=== PATIENT | female | born 1960 | race Two or more races ===

== ENCOUNTER 2024-10-11 17:49 | Emergency (ER) | payer BC, SELFPAY ==
[2024-10-11 18:02] VITALS: BP 153/76; PULSE 78; RESP 18; TEMP 36.7; O2SAT 98
--- NOTE | 2024-10-11 18:06 | XR_ITS ---
Examination: Hand, right 3 views Technique: Hand AP, oblique, lateral 3 views Date and time of exam: October 11, 2024 1820 hours INDICATIONS: Laceration to the hand and wrist today wrist pain and hand pain FINDINGS: Soft tissue prominence at the base of the first metacarpal No fracture No opaque foreign body IMPRESSION: No opaque foreign body
--- NOTE | 2024-10-11 18:07 | PD.EDRME ---
Rapid Medical Screening Exam E Arrival date/time: 10/11/24 17:49 64-year-old female with a history of hyperlipidemia presents to the emergency room with a chief complaint of a laceration to her right hand. Patient states she was washing dishes when a glass broke and cut her. I have greeted and performed a focused initial assessment of this patient. A comprehensive ED assessment and evaluation of the patient, analysis of all test results, and completion of the medical decision making process will be conducted by additional ED providers. Chief Complaint: Wound/Laceration Vital signs: Vital Signs Temperature 98.0 F 10/11/24 18:02 Pulse Rate 78 10/11/24 18:02 Respiratory Rate 18 10/11/24 18:02 Blood Pressure 153/76 H 10/11/24 18:02 Pulse Oximetry (%) 98 10/11/24 18:02 Oxygen Delivery Method Room Air 10/11/24 18:02 Vital signs reviewed by provider: Yes
[2024-10-11] MEDS: DIPHTH,PERTUSS(ACELL),TET VAC 0.5 ML SYR- ADULT IMi (18:18)
[2024-10-11] MEDS: LIDOCAINE HCL 1% 20 ML VIAL INFL (18:18)
--- NOTE | 2024-10-11 20:04 | EDNOTE_ITS ---
ED Wound/Laceration-RME/HPI General Chief Complaint: Wound/Laceration Stated Complaint: Laceration from glass right wrist Time Seen by Provider: 10/11/24 18:19 Arrival date/time: 10/11/24 17:49 Patient is also taking Eliquis which caused the wound to bleed significantly. She denies any numbness, tingling or functional deficit. RME / HPI RME / HPI narrative: 10/11/24 17:49 64-year-old female with a history of hyperlipidemia presents to the emergency room with a chief complaint of a laceration to her right hand. Patient states she was washing dishes when a glass broke and cut her. I have greeted and performed a focused initial assessment of this patient. A comprehensive ED assessment and evaluation of the patient, analysis of all test results, and completion of the medical decision making process will be conducted by additional ED providers. Related Data Home Medications ?Medication ?Instructions ?Recorded ?Confirmed atorvastatin 40 mg tablet (Lipitor) 40 mg PO HS #0 tab s 10/25/15 Allergies Allergy/AdvReac Type Severity Reaction Status Date / Time No Known Allergies Allergy Unverified 10/11/24 18:08 Review of Systems Review of Systems Systems Reviewed: All systems reviewed, normal except as documented Past Medical History Social History SMOKING STATUS: Never smoker ED Exam Narrative Physical exam: A&O, afebrile and non-toxic appearing 64-year-old female, no acute distress. Right thumb metacarpal area with 0.75 cm laceration, bleeding is controlled at this time due to a clot in the open wound. Sensory and motor intact distally. No functional deficit noted. Minimal pain at the laceration site. Lungs are clear, RRR, Abdomen is non-distended. Moves all extremities well. Course Course Course Narrative: XR hand reveals no evidence of opaque foreign body noted per radiologist. Tdap was updated. Wound was anesthetized with lidocaine 1%, 2 mL with good anesthesia obtained. Wound was explored, no foreign body noted. Additional cleansing of the wound performed. Wound closure with #2 4.0 nylon sutures with good wound edge approximation. Bleeding continued following suturing likely due to Eliquis. Direct pressure applied until pressure bandage could be applied. Quality Measures none Orders Category Date Time Status Set Up Suture Tray STAT Care 10/11/24 18:06 Active Wound Care NOW Care 10/11/24 18:06 Active XR hand comp RT min 3V Stat Exams 10/11/24 18:06 Completed Lidocaine 1% 20 ml [Xylocaine 1% 20 ML] Med 10/11/24 18:06 Discontinued 20 ml INFL X1 ONE TET,DIP/PERT AC (Adult)-Tdap [Boostrix Adult (Tdap) Med 10/11/24 18:06 Discontinued Vacc] 0.5 ml IMI .ONCE ONE Vital Signs Vital signs: Vital Signs Temperature 98.0 F 10/11/24 18:02 Pulse Rate 78 10/11/24 18:02 Respiratory Rate 18 10/11/24 18:02 Blood Pressure 153/76 H 10/11/24 18:02 Pulse Oximetry (%) 98 10/11/24 18:02 Oxygen Delivery Method Room Air 10/11/24 18:02 Wound / Laceration MDM Narrative MDM Narrative:: Symptoms, exam and diagnostic studies are consistent with: Right first metacarpal area laceration with sutures x 2. Patient was discharged home in stable condition. Patient/family advised to follow-up with their PCP in 24-48 hours. Encouraged to return to the ED for any new or worsening symptoms. Patient data External records reviewed:: None Clinical information provided by:: family Social determinants that could affect healthcare access:: none Patient has the following chronic illnesses:: Hyperlipidemia, blood thinner usage. How is presenting disease/condition affected by chronic disease/condition?: exacerbated by (Bleeding due to Eliquis.) Evaluation data The following diagnostics were reviewed and interpreted by me:: radiology exam(s) Lab and/or radiology exams considered but not ordered:: N/A Interpretation Summary: As noted above Medications / Prescriptions Medications or Prescriptions considered but not ordered:: N/A Medication administrations:: Medication Administration History Discontinued Medications Diphtheria/Tetanus/Acell Pertussis (Diphth,Pertuss(Acell),Tet Vac 0.5 Ml Syr- Adult) 0.5 ml IMi .ONCE ONE Stop: 10/11/24 18:07 Last Admin: 10/11/24 18:18 Dose: 0.5 ml Documented By: AMRIT Lidocaine HCl (Lidocaine Hcl 1% 20 Ml Vial) 20 ml INFL X1 ONE Stop: 10/11/24 18:07 Last Admin: 10/11/24 18:18 Dose: 20 ml Documented By: AMRIT Comments: USED BY PROVIDER As noted above Consultations Consultation(s) initiated? (list below): No Diagnosis Wound Differential Diagnosis: laceration Most likely diagnosis given after review of the tests above:: Laceration to right first metacarpal area without tendon laceration. Admission Indicated Admission indicated?: not indicated Explain why admission is indicated or not indicated:: Patient is stable for discharge Admission Request Was there a request for admission?: No Admission Attestation Admission request attestation: N/A Disposition Plan Disposition Plan: Discharge Discharge Attestation Discharge Attestation: The patient and all family members were given an opportunity to ask questions and understood the discharge instructions. Discharge instructions specifically effects, indications for sooner follow up or return to the emergency department, and the expected course of current diagnosis. Patient condition: Stable Discharge Plan Plan Patient Disposition: HOME (Self Care) Discharge Disposition comment: Stable and improved Prescriptions/Referrals Prescriptions/Med Rec: No Action atorvastatin [Lipitor] 40 MG tablet 40 mg PO HS Qty: 0 Referrals: Sharlene Baldwin, ORDER ENTRY SPECIALIST [Primary Care Provider] - In 1 week Problem List Clinical Impression: Laceration Patient/Caregiver Discharge Instructions Additional Instructions: Mantenga la herida limpia y seca, y no la exponga a demasiada humedad. Mant?ngala cubierta con jenifer curita. Retire los puntos en 10 d?as. Acuda a jenifer leonel de seguimiento con lennon m?dico de cabecera en 24 a 48 horas. Regrese a urgencias si presenta s?ntomas nuevos o empeora. Print Language: Kiswahili Stand Alone Forms: Dia Award Info., Patient Portal Info Letter Vaccines Vaccines Given During Stay: TDaP OSCAR/KEYON Supervising Physician JAIME Supervising Physician: Dr. Cervantes
== END 2024-10-11 20:35 | disposition home or self-care (01) ==
PROVIDERS: Emergency Provider Emergency Medicine; PCP Nurse Practitioner Family
DX: S61.511A Laceration without foreign body of right wrist, initial encounter (principal); E78.5 Hyperlipidemia, unspecified; Z23 Encounter for immunization; Z79.899 Other long term (current) drug therapy; W25.XXXA Contact with sharp glass, initial encounter
CPT/HCPCS: 12001; 73130; 90471; 90715; 99284; J3490

== ENCOUNTER → 2024-10-12 | Outpatient (CLI) | payer BC, SELFPAY ==
--- NOTE | 2024-10-12 13:00 | XR_ITS ---
Examination: Screening digital mammography, bilateral Computer aided detection 3-D breast Tomosynthesis, bilateral Date and time of exam: October 12, 2024 1309 hours Compared to mammograms dating to April 30, 2014 Indication: Screening Technique: Nonmagnified MLO, CC views of the breasts to been obtained, reconstructed from 3-D Tomosynthesis images. R2 computer aided detection program utilized for evaluation of suspicious masses and/or abnormal calcifications. 3-D Tomosynthesis images obtained. Findings: Scattered areas of fibroglandular density. Benign calcifications. Breast biopsy marker upper outer left breast No interval suspicious masses Impression: BI-RADS category II: Benign Findings. Recommend 1 year follow-up mammogram.
== END | disposition home or self-care (01) ==
LOC: CDIM 12:47
DX: Z12.31 Encounter for screening mammogram for malignant neoplasm of breast (principal); R92.323 Mammographic fibroglandular density, bilateral breasts; R92.1 Mammographic calcification found on diagnostic imaging of breast
CPT/HCPCS: 77063; 77067

== ENCOUNTER 2024-10-28 14:53 | Emergency (ER) | payer BC, SELFPAY ==
[2024-10-28 15:07] VITALS: BP 151/94; PULSE 60; RESP 16; TEMP 37; O2SAT 97; BMI 27.7
--- NOTE | 2024-10-28 15:56 | EDNOTE_ITS ---
ED Skin Abcess FB-RME/HPI General Chief complaint: Skin/Abscess/Foreign Body Stated complaint: Lump right wrist after sutures Time Seen by Provider: 10/28/24 15:00 Arrival date/time: 10/28/24 14:53 64-year-old female presents to the emergency department today with complaints of lump to the right wrist patient reports that she recently had sutures placed 10/11 reports since then the area has been swollen patient was seen by PCP and referred for an I&D Limitations: no limitations Related Data Home Medications ?Medication ?Instructions ?Recorded ?Confirmed atorvastatin 40 mg tablet (Lipitor) 40 mg PO HS #0 tab s 10/25/15 Allergies Allergy/AdvReac Type Severity Reaction Status Date / Time No Known Allergies Allergy Verified 10/28/24 14:57 Review of Systems Review of Systems Systems Reviewed: All systems reviewed, normal except as documented Constitutional Constitutional: Reports system reviewed and no additional complaints, except as documented, Denies fever(s) and Denies headache(s) Eyes Eyes: Reports system reviewed and no additional complaints, except as documented and Denies blurry vision ENT Ears, Nose, Mouth, and Throat: Reports system reviewed and no additional complaints, except as documented, Denies headache(s), Denies nasal congestion and Denies nasal discharge Cardiovascular Cardiovascular: Reports system reviewed and no additional complaints, except as documented, Denies chest pain and Denies dyspnea Respiratory Respiratory: Reports system reviewed and no additional complaints, except as documented, Denies chest congestion, Denies cough and Denies dyspnea Gastrointestinal Gastrointestinal: Reports system reviewed and no additional complaints, except as documented and Denies abdominal pain Integumentary/Breasts Skin/Breast: Reports system reviewed and no additional complaints, except as documented, Denies rash and Reports other (Hematoma right wrist) Neurologic Neurologic: Reports system reviewed and no additional complaints, except as documented, Reports as per HPI and Denies headache(s) Past Medical History Social History SMOKING STATUS: Never smoker ED Exam General Limitations: Present no limitations General appearance: Present alert and in no apparent distress Head Head exam: Present atraumatic Eye Eye exam: Present normal appearance, PERRL and EOMI ENT ENT exam: Present normal exam, normal oropharynx and mucous membranes moist Neck Neck exam: Present normal inspection, full ROM and trachea midline Chest Chest inspection: Present normal inspection and symmetric chest wall rise Respiratory Respiratory exam: Present normal lung sounds bilaterally Cardiovascular Cardiovascular exam: Present regular rate, normal rhythm and normal heart sounds Abdominal Exam Abdominal exam: Present soft and normal bowel sounds Extremities Exam Extremities exam: Present normal inspection, full ROM, tenderness and normal capillary refill Back Exam Back exam: Present normal inspection and full ROM Neurological Exam Neurological exam: Present alert, oriented X3, CN II-XII intact, normal gait and reflexes normal; Absent motor sensory deficit Psychiatric Psychiatric exam: Present normal affect and normal mood Skin Skin exam: Present warm, dry and other (Hematoma right wrist) Course Quality Measures none Orders Category Date Time Status Set Up Suture Tray STAT Care 10/28/24 15:10 Completed Wound Care NOW Care 10/28/24 15:10 Completed Vital Signs Vital signs: Vital Signs Temperature 98.6 F 10/28/24 15:07 Pulse Rate 60 10/28/24 15:07 Respiratory Rate 16 10/28/24 15:07 Blood Pressure 151/94 H 10/28/24 15:07 Pulse Oximetry (%) 97 10/28/24 15:07 Oxygen Delivery Method Room Air 10/28/24 15:07 O2 saturation at 97% room air within the limits PROCEDURES: Laceration Laceration 1: Site: upper extremity Side (If applicable): right Size (cm): 1 Description: linear Depth: simple, single layer Local Anesthetic: lidocaine 1% Amount of anesthesia used (mL): 2 Pre-repair: irrigated extensively Skin layer closed with: nylon Suture size (cm): 5-0 Number of sutures: 1 Technique: other ([id number]) Skin / Abscess / Foreign Body MDM Narrative MDM Narrative:: 64-year-old female presents to the emergency department today with complaints of lump to the right wrist patient reports that she recently had sutures placed 10/11 reports since then the area has been swollen patient was seen by PCP and referred for an I&D On exam patient does appear to have abscess at the site of I&D Patient was set up for I&D procedure a small quarter inch shallow incision made patient immediately started bleeding After further investigation patient appears to have a hematoma and not an absce ss or bleed is hematoma secondary to a arterial bleed. After speaking with the patient and her daughter it sounds that the patient was bleeding quite a bit when she initially cut herself with a piece of glass at that time I believe she most likely had an arterial bleed which was tied off which developed a hematoma. As the patient is on blood thinners I believe the hematoma is larger 1 [id number] suture applied today and a pressure dressing applied patient no longer is bleeding at time of discharge Symptoms consistent with hematoma, arterial injury Patient instructed have suture removed in 10 days Patient data External records reviewed:: [facility] previous records Clinical information provided by:: patient Social determinants that could affect healthcare access:: none Patient has the following chronic illnesses:: See history How is presenting disease/condition affected by chronic disease/condition?: exacerbated by Evaluation data The following diagnostics were reviewed and interpreted by me:: other (specify) Lab and/or radiology exams considered but not ordered:: Considered not ordered Interpretation Summary: N/A Medications / Prescriptions Medications or Prescriptions considered but not ordered:: Given Medication administrations:: Given Consultations Consultation(s) initiated? (list below): No Diagnosis Skin/Abscess Differential Diagnosis: abscess of skin or subcutaneous tissue, cellulitis and other (Hematoma, arterial injury) Most likely diagnosis given after review of the tests above:: Hematoma, arterial injury Admission Indicated Admission indicated?: not indicated Admission Request Was there a request for admission?: No Disposition Plan Disposition Plan: Discharge Discharge Attestation Discharge Attestation: The patient and all family members were given an opportunity to ask questions and understood the discharge instructions. Discharge instructions specifically effects, indications for sooner follow up or return to the emergency department, and the expected course of current diagnosis. Patient condition: Stable Discharge Plan Plan Patient Disposition: HOME (Self Care) Discharge Disposition comment: Stable Prescriptions/Referrals Prescriptions/Med Rec: No Action atorvastatin [Lipitor] 40 MG tablet 40 mg PO HS Qty: 0 Referrals: No Primary/Family,Physician [Primary Care Provider] - In 1 week Problem List Clinical Impression: Hematoma of right wrist, Unspecified injury of radial artery at wrist and hand level of right arm, subsequent encounter Patient/Caregiver Discharge Instructions Education Materials: ED Soft Tissue Contusion Additional Instructions: Please apply pressure follow-up with PCP for emergent concerns or increased bleeding return immediately Print Language: Bengali Stand Alone Forms: Dia Award Info., Patient Portal Info Letter PA/CAMERA PERSON Supervising Physician PA/CAMERA PERSON Supervising Physician: Dr. perkins
== END 2024-10-28 16:19 | disposition home or self-care (01) ==
PROVIDERS: Emergency Provider Family Medicine
DX: S65.111A Laceration of radial artery at wrist and hand level of right arm, initial encounter (principal); S60.211A Contusion of right wrist, initial encounter; X58.XXXA Exposure to other specified factors, initial encounter
CPT/HCPCS: 12002; 99284